=== PATIENT | female | born 2000 | race Caucasian/White ===

== ENCOUNTER 2019-01-15 01:14 | Emergency (ER) | payer OTHER ==
[~2019-01-15] VITALS: Ht 167.6 cm; Wt 65.9 kg
[2019-01-15 01:26] VITALS: TEMP 98.4
[2019-01-15] MEDS ORDERED: REMERON 15M15 MG/TA1 PO (01:28)
[2019-01-15] MEDS ORDERED: ZOLOFT 100MG100 MG PO (01:28)
[2019-01-15 02:03] LABS: BASO # 0.1 (0.0-0.2); BASO % 0.8 % (0.0-2.0); EOS # 0.9 (0.0-0.7); EOS % 9.2 % (0-4.0); GRAN # 4.9 (1.4-6.5); GRAN % 48.9 % (42.2-75.2); HEMATOCRIT 43.3 % (35.0-45.0); HEMOGLOBIN 14.7 g/dl (12.0-15.0); LYMPH # 3.1 (1.2-3.4); LYMPH % 30.6 % (20.0-51.0); MEAN CELL VOLUME 88 fl (80.0-95.0); MEAN CORPUSCULAR HEMOGLOBIN 30 pg (26.0-32.0); MEAN CORPUSCULAR HGB CONC 34 g/dl (33.0-37.0); MEAN PLATELET VOLUME 11.1 fl (7.4-10.4); MONO % 10.3 % (1.7-9.3); PLATELET COUNT 214 K/mm3 (130-400); RED BLOOD COUNT 4.94 M/mm3 (4.10-5.30); REDCELL DISTRIBUTION WIDTH-CV 12.6 % (11.5-14.5)
[2019-01-15 02:14] LABS: ACETAMINOPHEN < 10 ug/mL (10-30); ALANINE AMINOTRANSFERASE 20 U/L (9-52); ALBUMIN 4.6 gm/dL (3.5-5.0); ALCOHOL(ethanol),MEDICAL < 10 mg/dL; ALKALINE PHOSPHATASE 103 U/L (50-136); ANION GAP 12 mmol/L (7-16); AST,SGOT 26 U/L (15-37); BILIRUBIN,TOTAL 0.3 mg/dL (0.0-1.0); BLOOD UREA NITROGEN 18 mg/dL (7-17); CALCIUM 9.5 mg/dL (8.4-10.2); CARBON DIOXIDE 23 mmol/L (22-30); CHLORIDE 105 mmol/L (98-107); CREATININE, serum 0.73 (0.52-1.25); GLUCOSE 107 mg/dL (74-106); POTASSIUM 3.4 mmol/L (3.4-5.0); SALICYLATE < 1.0 mg/dL; SODIUM 140 mmol/L (137-145); TOTAL PROTEIN 7.4 gm/dL (6.4-8.2)
[2019-01-15 02:32] LABS: COLLECTION METHOD CLEAN CATCH
[2019-01-15 02:40] LABS: MUCOUS Present /lpf; PH 6 (5-8); SQUAMOUS EPITHELIAL None Seen /hpf; URINE APPEARANCE Clear; URINE BACTERIA None Seen /hpf; URINE BILIRUBIN Negative (NEGATIVE); URINE BLOOD 1+ (NEGATIVE); URINE COLOR Yellow; URINE GLUCOSE Negative (NEGATIVE); URINE KETONE Negative (NEGATIVE); URINE LEUKOCYTE ESTERASE Negative (NEGATIVE); URINE NITRATE Negative (NEGATIVE); URINE PROTEIN(semi-quant) Negative (NEGATIVE); URINE RBC 0-2 /hpf; URINE UROBILINOGEN Negative (NEGATIVE)
[2019-01-15 02:49] LABS: TRICYCLIC ANTIDEPRESS URINE NEGATIVE
[2019-01-15 07:29] VITALS: BP 112/68; PULSE 75
== END 2019-01-15 07:32 | disposition home or self-care (01) ==
LOC: COL.ER 01:14
PROVIDERS: Physician Assistant
DX: S51.812A Laceration without foreign body of left forearm, initial encounter (principal); S71.111A Laceration without foreign body, right thigh, initial encounter; F32.9 Major depressive disorder, single episode, unspecified; Z23 Encounter for immunization; Z91.5 Personal history of self-harm; X78.8XXA Intentional self-harm by other sharp object, initial encounter